=== PATIENT | female | born 1965 | race Caucasian/White ===

== ENCOUNTER 2017-06-30 06:19 | Inpatient (IN) ==
--- NOTE | 2017-06-29 21:00 | Physician Discharge Referral ---
Home Health/Hosp Referral Info Transfer to: Home Health Provider in Charge Post Discharge: PCP - Diagnosis (1) Arthritis of left hip Priority: Primary Status: Acute (2) Status post total hip replacement, left Priority: Primary Status: Acute (3) HTN (hypertension) Priority: Secondary Status: Chronic (4) Tobacco use Priority: Secondary Status: Chronic (5) DMII (diabetes mellitus, type 2) Priority: Secondary Status: Chronic (6) Epilepsia Priority: Secondary Status: Chronic (7) Obesity Priority: Secondary Status: Chronic - Respiratory Orders None Smoking Cessation: Smoking cessation has been advised. For more information, call the [place] Tobacco Quit Line at 7-620-QENH-NOW. - Diet/Nutrition Diet/Nutrition Orders: Regular - Activity Activity Orders: Up ad michael, Ambulate - Services Needed Following services are medically necessary services: Nursing, Home Health Aide, Physical Therapy, Occupational Therapy - Transfer Medications Prescriptions: OxyCODONE Immed Rel [Roxicodone 5 MG] 5 mg PO Q6HR PRN #28 tablet PRN Reason: Pain Aspirin Enteric Coated [Aspirin EC] 325 mg PO DAILY #21 tablet. [place] Medications: CeleXA 03/25/15 [History] Tegretol BID 03/25/15 [History] Benzonatate [Tessalon] 200 mg PO TID PRN #20 capsule 07/31/16 [Rx] Cefdinir [Omnicef] 300 mg PO BID #20 capsule 07/31/16 [Rx] Fluticasone Propionate Nasal [Flonase] 2 spray NS DAILY #1 bottle 07/31/16 [Rx] Naproxen [Naprosyn] 500 mg PO BID #6 tablet 07/31/16 [Rx] Lisinopril 2.5 mg PO DAILY #30 tablet 08/25/16 [Rx] Cyclobenzaprine [Flexeril] 10 mg PO TID #9 tablet 09/05/16 [Rx] Cyclobenzaprine [Flexeril] 10 mg PO TID #30 tablet 09/30/16 [Rx] Methocarbamol [Robaxin] 500 mg PO TID #30 tablet 09/30/16 [Rx] Aspirin Enteric Coated [Aspirin EC] 325 mg PO DAILY #21 tablet. 06/29/17 [Rx] OxyCODONE Immed Rel [Roxicodone 5 MG] 5 mg PO Q6HR PRN #28 tablet 06/29/17 [Rx] Allergies/Adverse Reactions: 3 Allergy/AdvReac Type Severity Reaction Status Date / Time morphine Allergy Mild See Verified 09/30/16 11:44 Comments phenylephrine Allergy See Verified 09/30/16 11:44 [From Sudafed PE] Comments pseudoephedrine Allergy See Verified 09/30/16 11:44 [From Sudafed] Comments Tetracycline Allergy See Verified 09/30/16 11:44 Comments Certification: Further, I certify that my clinical findings support that this patient is homebound (i.e. absences from home require considerable and taxing effort and are for medical reasons or restoration services or infrequently or short duration when for other reasons) because: Homebound Reason: Post-surgery restriction and or conditions limit ability to leave home Attestation: My signature below is to certify that this patient is under my care and that I, or nurse practitioner, or a physician's assistant plant manager working with me, has a face-to -face encounter with this patient.
--- NOTE | 2017-06-29 21:00 | Discharge Summary ---
<Lisa Guzman - Last Filed: 06/29/17 20:56> Date of Encounter: 06/29/17 - Discharge Diagnosis (1) Arthritis of left hip Priority: Primary Status: Acute (2) Status post total hip replacement, left Priority: Primary Status: Acute (3) HTN (hypertension) Priority: Secondary Status: Chronic Qualifiers: Hypertension type: essential hypertension Qualified Code(s): I10 - Essential (primary) hypertension (4) Tobacco use Priority: Secondary Status: Chronic (5) DMII (diabetes mellitus, type 2) Priority: Secondary Status: Chronic Qualifiers: Diabetes mellitus complication status: with unspecified complications Diabetes mellitus meterman insulin use: unspecified meterman insulin use status Qualified Code(s): E11.8 - Type 2 diabetes mellitus with unspecified complications (6) Epilepsia Priority: Secondary Status: Chronic Qualifiers: Epilepsy type: unspecified Intractability: not intractable Status epilepticus: without status epilepticus Qualified Code(s): G40.909 - Epilepsy , unspecified, not intractable, without status epilepticus (7) Obesity Priority: Secondary Status: Chronic Qualifiers: Obesity type: due to excess calories Obesity classification: unspecified obesity classification Serious obesity comorbidity presence: unspecified whether serious comorbidity present Qualified Code(s): E66.09 - Other obesity due to excess calories; Z68.36 - Body mass index (BMI) 36.0-36.9, adult; Z68.36 - Body mass index (BMI) 36.0-36.9, adult - Discharge Medications Home Medications: Aspirin Enteric Coated [Aspirin EC] 325 mg PO DAILY #21 mike. 06/29/17 [Rx] OxyCODONE Immed Rel [Roxicodone 5 MG] 5 mg PO Q6HR PRN #28 tablet 06/29/17 [Rx] Atorvastatin [Lipitor] 40 mg PO HS 06/30/17 [History] Gabapentin [Neurontin] 800 mg PO TID 06/30/17 [History] Ranitidine HCl [Zantac] 150 mg PO BID 06/30/17 [History] Tizanidine HCl [Zanaflex] 4 mg PO TID 06/30/17 [History] Topiramate [Topamax] 50 mg PO BID 06/30/17 [History] Tramadol HCl [Ultram] 50 mg PO TID PRN 06/30/17 [History] Allergies/Adverse Reactions: 3 Allergy/AdvReac Type Severity Reaction Status Date / Time morphine Allergy Mild See Verified 06/30/17 07:09 Comments phenylephrine Allergy See Verified 06/30/17 07:09 [From Sudafed PE] Comments pseudoephedrine Allergy See Verified 06/30/17 07:09 [From Sudafed] Comments Tetracycline Allergy See Verified 06/30/17 07:09 Comments Primary care physician: Param Herring DO - Patient Status Disposition: Home, Self-Care Condition: Good - Discharge Instructions Follow Up With: Param Herring DO [Primary Care Provider] - - Hospital Course Hospital course: Ms. Chávez is a 52 year old female - Time Spent with Patient Total time spent providing and/or coordinating discharge services: <William Higuera - Last Filed: 07/01/17 06:28> Date of Encounter: 07/01/17 Time of Encounter: 06:27 - Discharge Diagnosis (1) Arthritis of left hip Priority: Primary Status: Chronic (2) Status post total hip replacement, left Priority: Primary Status: Acute (3) HTN (hypertension) Priority: Secondary Status: Chronic Qualifiers: Hypertension type: essential hypertension Qualified Code(s): I10 - Essential (primary) hypertension (4) Tobacco use Priority: Secondary Status: Chronic (5) DMII (diabetes mellitus, type 2) Priority: Secondary Status: Chronic Qualifiers: Diabetes mellitus complication status: with unspecified complications Diabetes mellitus meterman insulin use: unspecified meterman insulin use status Qualified Code(s): E11.8 - Type 2 diabetes mellitus with unspecified complications (6) Epilepsia Priority: Secondary Status: Chronic Qualifiers: Epilepsy type: unspecified Intractability: not intractable Status epilepticus: without status epilepticus Qualified Code(s): G40.909 - Epilepsy , unspecified, not intractable, without status epilepticus (7) Obesity Priority: Secondary Status: Chronic Qualifiers: Obesity type: due to excess calories Obesity classification: adult class 2 (BMI 35 - 39.9) Serious obesity comorbidity presence: unspecified whether serious comorbidity present Body mass index: BMI 36.0-36.9 Qualified Code(s) : E66.09 - Other obesity due to excess calories; Z68.36 - Body mass index (BMI) 36.0-36.9, adult; Z68.36 - Body mass index (BMI) 36.0-36.9, adult (8) Acute blood loss anemia Priority: Primary Status: Acute Primary care physician: Param Herring DO - Patient Status Functional capacity at discharge: uses cane/walker Overall status at discharge: patient is progressing back to baseline - Hospital Course Hospital course: Ms. Chávez is a 52 year old female Status post total hip replacement. The patient had an uneventful postoperative course. They received antibiotics and physical therapy and were discharged in stable condition. There will follow -up in the office in 2 weeks. - Time Spent with Patient Total time spent providing and/or coordinating discharge services:
--- NOTE | 2017-06-30 06:25 | History & Physical Report ---
Date of Encounter: 06/30/17 Time of Encounter: 06:25 24 Hour HP Update - Instructions Instructions: If the History and Physical is less than 30 days old and was completed prior to A.M. admission and or procedure and has NOT been updated on calendar day of procedure please complete this update prior to performing procedure. - Update Patient reports changes in Medical Condition: No Changes in examination, assessment, or condition: No Changes in Medication: No Preop tests/diagnostics Reviewed: Yes Surgery Remains Indicated: Yes Consent for Planned Operative Procedure(s) Verified: Yes - Pre-Operative Checklist Preoperative Checklist Indicated: No Prophylactic Antibiotic Ordered: Yes Is VTE Prophylaxis Indicated?: Yes
[2017-06-30] MEDS ORDERED: Albuterol 2.5 MG/3 ML NEBULIZER IH ONE (06:29)
[2017-06-30] MEDS ORDERED: CeFAZolin Syr 2,000MG/20 ML 2,000 MG/20 ML SYRINGE IVPB ONE (06:29)
[2017-06-30] MEDS ORDERED: Ringers Solution, Lactated 1,000 ML IVC SCH (06:30)
--- NOTE | 2017-06-30 06:55 | Anesthesia Evaluation PreOp ---
Date of Encounter: 06/30/17 Time of Encounter: 06:52 - Past History Planned Operation: Left obotic Total Hip Arthroplasty Cardiac History: HTN, Hyperlipidemia Pulmonary History: Smoker (1/2 ppd) [employer] History: Seizures (Epilepsy last one 4-5 mo. ago) Other Medical History: Denies Any Significant HX Anesthesia History: Past Anesthesia (GB, WALE, c/sx2, neck sx), Problems (PONV) : No Alcohol Use: none Drug use: none Medications and Allergies CeleXA 03/25/15 [History] Tegretol BID 03/25/15 [History] Benzonatate [Tessalon] 200 mg PO TID PRN #20 capsule 07/31/16 [Rx] Cefdinir [Omnicef] 300 mg PO BID #20 capsule 07/31/16 [Rx] Fluticasone Propionate Nasal [Flonase] 2 spray NS DAILY #1 bottle 07/31/16 [Rx] Naproxen [Naprosyn] 500 mg PO BID #6 tablet 07/31/16 [Rx] Lisinopril 2.5 mg PO DAILY #30 tablet 08/25/16 [Rx] Cyclobenzaprine [Flexeril] 10 mg PO TID #9 tablet 09/05/16 [Rx] Cyclobenzaprine [Flexeril] 10 mg PO TID #30 tablet 09/30/16 [Rx] Methocarbamol [Robaxin] 500 mg PO TID #30 tablet 09/30/16 [Rx] Aspirin Enteric Coated [Aspirin EC] 325 mg PO DAILY #21 tablet. 06/29/17 [Rx] OxyCODONE Immed Rel [Roxicodone 5 MG] 5 mg PO Q6HR PRN #28 tablet 06/29/17 [Rx] 3 Allergy/AdvReac Type Severity Reaction Status Date / Time morphine Allergy Mild See Verified 09/30/16 11:44 Comments phenylephrine Allergy See Verified 09/30/16 11:44 [From Sudafeyuriy PE] Comments pseudoephedrine Allergy See Verified 09/30/16 11:44 [From Sudafed] Comments Tetracycline Allergy See Verified 09/30/16 11:44 Comments - Meds/Allergy Pre-op Review Medications Reviewed: Yes Allergies Reviewed: Yes Beta Blockers on Current Med List: No Anesthesia Results - Labs Laboratory Tests 06/16/17 06/16/17 06/16/17 11:55 11:55 11:55 WBC 8.6 Hgb 14.4 Hct 43.7 Plt Count 223 INR 0.9 Sodium 144 Potassium 3.9 Chloride 111 H Carbon Dioxide 23 BUN 13 - Imaging EKG: image reviewed (SR) Anesthesia Exam O2 Sat Height 1.6 m Height 1.6 m Height 1.6 m Height 1.57 m Weight 92.079 kg Weight 92.079 kg Weight 92.079 kg Weight 93.44 kg O2 Sat by Pulse Oximetry 97 Vital Signs Temp Pulse Resp BP Pulse Ox 97.8 F 77 18 118/83 97 06/30/17 06:49 06/30/17 06:49 06/30/17 06:49 06/30/17 06:49 06/30/17 06:49 Height: 5'3'' Weight: 203# NPO (# of Hours): > 8 hrs Pain Scale: 0 Pain Scale Used: Numeric (1 - 10) - HEENT Pupil (Motor): Pupils equal, EOMI Mallampati: I Teeth: Normal Oral Opening: Greater than 3 - [employer] LOC: Oriented [employer] Motor: Normal RUE, Normal LUE, Normal RLE, Normal LLE, Normal Face [employer] Sensory: Normal: RUE, LUE, RLE, LLE, Face - Cardiac Rhythm: Regular Murmur: None JVD: No Carotid Bruit: No - Pulmonary Breath Sounds: bilateral Clear Respiratory Effort: Symmetrical Anesthesia Assess/Plan ASA Score: 3 Modified Juliana Scale for Level of Consciousness: Cooperative, oriented, and tranquil Anesthetic Plan: General Autologous Blood: Yes Recovery Plan: PACU
[2017-06-30] MEDS ORDERED: Scopolamine Patch 1.5 MG PATCH.TD72 TD ONE (07:03)
[2017-06-30] MEDS ORDERED: Ethanol\\Acetic Acid\\Na Ace\\Ben 1,000 ML IRRIG.SOLN IR ONE (07:20)
[2017-06-30] MEDS ORDERED: Lidocaine -MPF 4% 5 ML AMPUL ONE (08:17)
[2017-06-30] MEDS ORDERED: Lidocaine -MPF 2% 2 ML VIAL ONE (08:17)
[2017-06-30] MEDS ORDERED: *HR* Succinylcholine 200 MG/10 ML VIAL IVP ONE (08:17)
[2017-06-30] MEDS ORDERED: Ondansetron 4 MG/2 ML VIAL ONE (08:17)
[2017-06-30] MEDS ORDERED: *HR* FentaNYL (PF) 100 MCG/2 ML VIAL ONE (08:17)
[2017-06-30] MEDS ORDERED: *HR* Propofol 200 MG/20 ML VIAL IVP ONE (08:17)
[2017-06-30] MEDS ORDERED: *HR* Phenylephrine 10 MG/ML VIAL ONE (08:17)
[2017-06-30] MEDS ORDERED: Dexamethasone 4 MG/ML VIAL ONE (08:17)
[2017-06-30] MEDS ORDERED: *HR* Midazolam HCl 2 MG/2 ML VIAL ONE (08:17)
[2017-06-30] MEDS ORDERED: Albuterol 2.5 MG/3 ML NEBULIZER IH PRN (08:27)
[2017-06-30] MEDS ORDERED: *HR* Labetalol 20 MG/4 ML SYRINGE IVP PRN (08:27)
[2017-06-30] MEDS ORDERED: Ondansetron 4 MG/2 ML VIAL IVP PRN ×2 (08:27→10:19)
[2017-06-30] MEDS ORDERED: *HR* Promethazine 25 MG/ML VIAL IVP PRN (08:27)
[2017-06-30] MEDS ORDERED: Ipratropium Neb 0.5 MG NEBULIZER IH PRN (08:27)
[2017-06-30] MEDS ORDERED: *HR* HYDROmorphone (PF) 1 MG/ML SYRINGE IVP PRN ×2 (08:27→10:19)
[2017-06-30] MEDS ORDERED: EPHEDrine 50 MG/ML VIAL ONE (08:40)
[2017-06-30] MEDS ORDERED: *HR* HYDROmorphone 2 MG/ML SYRINGE ONE (08:41)
--- NOTE | 2017-06-30 08:55 | Orthopedic Operative Note ---
Date of procedure: 06/30/17 Pre-op diagnosis: Left hip arthritis/labral tear Post-op diagnosis: same Procedure: Procedure: Left Total Hip Replacment robotic-assisted Estimated blood loss: 300 cc Hardware: Metal and polyethylene replacement. Erica DM Cup: 52 cup Femoral size stem 7 Head:0 head with Shira Procedural Notes: Grade 2 femoral head arthritic changes grade 3 acetabular socket, procedure performed with robotic assistance. Operative procedure: The patient was brought to the operating room and placed on the operating room table. After general anesthesia was administered the patient was placed in the lateral decubitus position with the operative leg up. All pressure points were padded appropriately and the head was stabilized in the neutral position. The operative extremity was prepped and draped in the sterile surgical fashion patient received IV antibiotic prior to skin incision. 3 Steinmann pins were placed in the iliac crest 3 cm proximal to the anterior superior iliac spine this was for the robotic-assisted sensor. This was done through a small 2 cm incision. A standard posterior approach is made to the operative hip, the incision was made through the skin and subcutaneous tissue hemostasis was obtained with Bovie cautery. Using careful sharp dissection the fascia was identified and incised exposing the external rotators. The femoral checkpoint was placed leg length was measured at this time utilizing robotic assistance. Operative hip was 3 mm shorter with 9 mm of offset. The external rotators were released off the greater trochanter and tagged with #2 FiberWire suture. The capsule was T'd open and the hip was brought into internal rotation. Patient noted to have grade 2 arthritic changes femoral head. The femoral neck cut was made at the appropriate level roughly Xmm proximal to the lesser trochanter aced on preoperative templating. An anterior capsulotomy was performed for the anterior retractor. Soft tissues removed from the acetabulum. Patient noted to have grade 3 arthritic changes acetabulum. The acetabulum checkpoint was placed confirmed. The acetabulum was then mapped with robotic assistance. Based on the preoperative plan the acetabulum was reamed in one step with a 52 reamer. The 52 acetabulum was impacted with robotic assistance and 43 degrees of abduction and 23 degrees of anteversion, based on the preoperative plan. The hip was brought back in to internal rotation and prepared with the primer boxer followed by the canal finder followed by the reaming process to a size 7 broaching process in 20 degrees anteversion. It was broached up to the appropriate size 7. Trial reduction revealed leg lengths close to normal. The femoral implant was impacted in place in 20 degrees of anteversion. Trial reduction found the hip to be stable with 0 head and Shira. The trials were removed and the real implants were impacted in place. The hip was reduced, patient had robotic confirmed leg length equal with +1 of offset compared to the contralateral side. The hip had excellent stability with forward flexion to 90 degrees adduction of 30 degrees and internal rotation of 60 degrees. The hip had no shuck. The hips after 2 minutes with a Betadine saline solution. It was irrigated out with 2 L of pulse irrigation. The checkpoints were removed, Steinmann pins were removed. The pain incision and the hip were closed by the PA. The deep tissue was irrigated and closed deep with #1 PDS suture superficially with 0 PDS suture and skin was closed with Dermabond and zip tie. The patient was placed in a sterile dressing and abduction pillow. The patient was extubated and transferred to the recovery room in stable condition. Anesthesia: GETA Surgeon: William Higuera Condition: stable Disposition: PACU
[2017-06-30] MEDS ORDERED: Acetaminophen IV 1,000 MG/100 ML INFUS..BTL ONE (09:08)
[2017-06-30] MEDS ORDERED: Ketorolac 30 MG/ML VIAL ONE (09:15)
[2017-06-30 09:53] LABS: Hematocrit 35.1 % (35.3-44.9); Hemoglobin 11.8 g/dL (11.5-15.4)
--- NOTE | 2017-06-30 10:16 | Anesthesia Evaluation Post Op ---
Date of Encounter: 06/30/17 Time of Encounter: 10:15 - Vital Signs Vital Signs: Vital Signs/O2 Sat, Most Current Temp Pulse Resp BP Pulse Ox 98.0 F 63 14 96/69 97 06/30/17 10:00 06/30/17 10:00 06/30/17 10:00 06/30/17 10:00 06/30/17 10:00 - Lungs Lungs: Clear Ascult./Percussion - Airway Airway: Non-obstructed - Cardiovascular Regular Rate - Mental Status Mental Status: Alert & Oriented, Answers Appropriately - Pain Pain Scale: 0 Pain Scale used: Numeric (1 - 10) - Hydration Hydration: Ice chips, Has not voided - Discharge PostOp Status: Transfer Patient to floor
[2017-06-30] MEDS ORDERED: Famotidine 20 MG TABLET PO SCH (10:19)
[2017-06-30] MEDS ORDERED: Temazepam 15 MG CAPSULE PO PRN (10:19)
[2017-06-30] MEDS ORDERED: Naloxone 0.4 MG/ML INJ IVP PRN (10:19)
[2017-06-30] MEDS ORDERED: *HR* OxyCODONE Immed Rel 5 MG TABLET PO PRN (10:19)
[2017-06-30] MEDS ORDERED: MOM Conc 10 ML UD.LIQ PO PRN (10:19)
[2017-06-30] MEDS ORDERED: Sennosides 8.6 MG TABLET PO PRN (10:19)
[2017-06-30] MEDS: Ascorbic Acid 500 MG TABLET PO SCH ×2 (11:13→15:45)
[2017-06-30] MEDS: Multivit/Ca/Min/Fe/FA 1 TAB TABLET PO SCH (11:13)
[2017-06-30] MEDS: Topiramate 25 MG TABLET PO SCH ×2 (12:19→19:54)
[2017-06-30] MEDS ORDERED: 0.9 % Sodium Chloride 500 ML ONE (12:39)
[2017-06-30] MEDS: Famotidine 20 MG TABLET PO SCH ×2 (12:43→19:54)
[2017-06-30] MEDS ORDERED: 0.9 % Sodium Chloride 500 ML IVC ONE (12:47)
[2017-06-30] MEDS: *HR* OxyCODONE Immed Rel 5 MG TABLET PO PRN (13:42)
[2017-06-30] MEDS: Gabapentin 400 MG CAPSULE PO SCH ×2 (15:45→19:54)
[2017-06-30] MEDS: CeFAZolin Premix DUPLEX 2,000 MG/50 ML BAG IVPB SCH (15:45)
[2017-06-30] MEDS ORDERED: Acetaminophen IV 1,000 MG/100 ML INFUS..BTL IVPB PRN (15:55)
[2017-06-30] MEDS: *HR* Enoxaparin 30 MG/0.3 ML SYRINGE SQ SCH (16:41)
[2017-06-30] MEDS: Ringers Solution, Lactated 1,000 ML IVC SCH (16:41)
[2017-06-30] MEDS ORDERED: *HR* Enoxaparin 30 MG/0.3 ML SYRINGE SQ SCH (18:00)
[2017-07-01] MEDS: CeFAZolin Premix DUPLEX 2,000 MG/50 ML BAG IVPB SCH (00:25)
[2017-07-01 05:49] LABS: Hematocrit 28.2 % (35.3-44.9)
[2017-07-01 05:56] LABS: Hemoglobin 9.3 g/dL (11.5-15.4)
[2017-07-01 06:01] LABS: BUN/Creatinine Ratio 18 (6-26); Blood Urea Nitrogen 13 mg/dL (7-20); Calcium 8.3 mg/dL (8.6-10.8); Carbon Dioxide 22 mEq/L (19-29); Chloride 109 mEq/L (98-109); Glucose 110 mg/dL (70-99); Osmolality,Calculated 287 (280-300); Potassium 3.6 mEq/L (3.5-4.5); Sodium 138 mEq/L (136-145); eGFR For African Americans > 60 (> 60); eGFR For Non-African Americans > 60 (> 60)
[2017-07-01] MEDS: *HR* OxyCODONE Immed Rel 5 MG TABLET PO PRN ×2 (06:01→10:51)
[2017-07-01] MEDS: *HR* Enoxaparin 30 MG/0.3 ML SYRINGE SQ SCH (06:02)
[2017-07-01] MEDS: Ringers Solution, Lactated 1,000 ML IVC SCH (06:02)
--- NOTE | 2017-07-01 06:28 | Orthopedics Progress Note ---
Date of Encounter: 07/01/17 Time of Encounter: 06:28 - Assessment and Plan (1) Arthritis of left hip Current Visit: No Status: Chronic (2) Status post total hip replacement, left Current Visit: No Status: Acute (3) HTN (hypertension) Current Visit: No Status: Chronic Qualifiers: Hypertension type: essential hypertension Qualified Code(s): I10 - Essential (primary) hypertension (4) Tobacco use Current Visit: No Status: Chronic (5) DMII (diabetes mellitus, type 2) Current Visit: No Status: Chronic Qualifiers: Diabetes mellitus complication status: with unspecified complications Diabetes mellitus terminal supervisor insulin use: unspecified terminal supervisor insulin use status Qualified Code(s): E11.8 - Type 2 diabetes mellitus with unspecified complications (6) Epilepsia Current Visit: No Status: Chronic Qualifiers: Epilepsy type: unspecified Intractability: not intractable Status epilepticus: without status epilepticus Qualified Code(s): G40.909 - Epilepsy , unspecified, not intractable, without status epilepticus (7) Obesity Current Visit: No Status: Chronic Qualifiers: Obesity type: due to excess calories Obesity classification: adult class 2 (BMI 35 - 39.9) Serious obesity comorbidity presence: unspecified whether serious comorbidity present Body mass index: BMI 36.0-36.9 Qualified Code(s) : E66.09 - Other obesity due to excess calories; Z68.36 - Body mass index (BMI) 36.0-36.9, adult; Z68.36 - Body mass index (BMI) 36.0-36.9, adult (8) Acute blood loss anemia Current Visit: Yes Status: Acute Subjective Interval history: Patient was seen this morning doing well without complaints. Afebrile vital signs stable. Operative extremity: Neurovascularly intact Dressing clean dry and intact Calves nontender Assessment and plan: Continue with postoperative care Hemoglobin 9.3 discharged today Objective Vital signs: Vital Signs Temp Pulse Resp BP Pulse Ox 07/01/17 03:50 97.8 F 65 18 121/55 99 07/01/17 00:00 98.1 F 70 16 116/68 98 06/30/17 18:38 98.2 F 65 16 110/73 98 06/30/17 17:28 91/60 06/30/17 13:38 97.5 F L 76 16 105/73 99 06/30/17 13:34 97.7 F 70 16 105/73 96 06/30/17 12:18 97.5 F L 73 15 87/57 97 06/30/17 11:41 97.4 F L 67 15 101/67 99 06/30/17 11:03 97.5 F L 70 16 139/74 97 06/30/17 10:50 97 06/30/17 10:26 97.7 F 66 14 90/59 97 06/30/17 10:10 98.0 F 69 15 106/71 96 06/30/17 10:00 98.0 F 63 14 96/69 97 06/30/17 09:50 65 14 102/47 96 06/30/17 09:40 77 14 133/70 96 06/30/17 09:30 97.5 F L 95 16 104/72 95 06/30/17 06:49 97.8 F 77 18 118/83 97 Intake and Output 06/30/17 06/30/17 07/01/17 15:59 23:59 07:59 Intake Total 0 / 0 390 / 390 1000 / 1000 Output Total 500 / 500 350 / 350 300 / 300 Balance -500 / -500 40 / 40 700 / 700 Intake: IV Fluids 50 / 50 1000 / 1000 Lactated Ringers 1,000 ML @ 75 1000 / 1000 mls/hr IVC .[id number] MARIO Rx#: [id number] Ancef Premix DUPLEX 2,000 mg In 50 / 50 50 ml @ 100 mls/hr IVPB Q8HR MARIO Rx#:[id number] Oral 0 / 0 340 / 340 Output: Urine 200 / 200 350 / 350 300 / 300 Estimated Blood Loss 300 / 300 Other: Meal Dinner Percent of Meal Consumed 100% # Voids 1 - Labs CBC & BMP: 07/01/17 04:28 07/01/17 04:28 Labs: Abnormal lab results Hgb 9.3 g/dL (11.5-15.4) L D 07/01/17 04:28 Hct 28.2 % (35.3-44.9) L 07/01/17 04:28 Glucose 110 mg/dL (70-99) H 07/01/17 04:28 POC Glucose 122 (58-89) H 06/30/17 06:37 Calcium 8.3 mg/dL (8.6-10.8) L 07/01/17 04:28 - VTE Documentation of Mechanical Device: Venous foot pump, device Consult Discharge Plan - Plan Referrals: Param Herring DO [Primary Care Provider] -
[2017-07-01 09:20] VITALS: BP 114/74
[2017-07-01] MEDS: Gabapentin 400 MG CAPSULE PO SCH (09:21)
[2017-07-01] MEDS: Topiramate 25 MG TABLET PO SCH (09:21)
[2017-07-01] MEDS: Multivit/Ca/Min/Fe/FA 1 TAB TABLET PO SCH (09:21)
[2017-07-01] MEDS: Famotidine 20 MG TABLET PO SCH (09:21)
[2017-07-01] MEDS: Ascorbic Acid 500 MG TABLET PO SCH (09:21)
[2017-07-01] MEDS ORDERED: FLUARIX QUAD 2017-18 36MOS UP/PF 0.5 ML SYRINGE IM ONE (11:27)
== END 2017-07-01 13:30 | disposition home health service (06) | DRG 301 ==
LOC: SAMDAY 06:19 → 3NENU 10:19
PROVIDERS: ADMIT Orthopaedic Surgery; ATTEND Orthopaedic Surgery